=== PATIENT | female | born 1985 | race African-American/Black ===

== ENCOUNTER 2016-12-27 09:36 | Inpatient (IN) | payer OTHER ==
[~2016-12-27] VITALS: Ht 162.6 cm; Wt 156.5 kg
[2016-12-27 10:01] LABS: CLARITY URINE CLOUDY (CLEAR); COLOR URINE DARK YELLOW (YELLOW); GLUCOSE URINE NEGATIVE (NEGATIVE); KETONES URINE TRACE (NEGATIVE); LEUKOCYTE ESTERASE URINE TRACE (NEGATIVE); NITRITE URINE NEGATIVE (NEGATIVE); OCCULT BLOOD URINE NEGATIVE (NEGATIVE); PH URINE 5.5 (4.5-8.0); PROTEIN URINE 3+ (NEGATIVE); SPECIFIC GRAVITY URINE 1.033 (1.005-1.030)
[2016-12-27] MEDS ORDERED: LABE200T PO (10:24)
[2016-12-27] MEDS ORDERED: PREN-88 PO (10:24)
[2016-12-27] MEDS ORDERED: FOLI-43 PO (10:24)
[2016-12-27] MEDS ORDERED: NIFE30TA94 PO (10:24)
[2016-12-27] MEDS ORDERED: DEXT 5%/LR + PITOCIN 20UNITS/L 1,000 ML IV SCH (10:39)
[2016-12-27] MEDS ORDERED: LIDOCAINE HCL 1% 20ML VIAL (Pyxis) INJ INFIL SCH (10:45)
[2016-12-27] MEDS ORDERED: METHYLERGONOVINE MALEATE 0.2 MG/ML IM PRN (10:45)
[2016-12-27] MEDS ORDERED: CARBOPROST TROMETHAMINE 250 MCG/ML AMPUL IM PRN (10:45)
[2016-12-27] MEDS ORDERED: BUTORPHANOL TARTRATE 2 MG/ML VIAL IV PRN (10:45)
[2016-12-27] MEDS: LACTATED RINGERS 1,000 ML IV SCH ×2 (11:26→21:27)
[2016-12-27] MEDS ORDERED: HYDRALAZINE 20MG/ML VIAL IV SCH ×2 (11:30→12:15)
[2016-12-27 11:32] LABS: BASOPHILS % 0.5 % (0.0-2.0); EOSINOPHILS % 3.2 % (0.0-5.0); HEMATOCRIT. 35.6 % (36.0-48.0); HEMOGLOBIN. 11.8 g/dL (12.0-16.0); LYMPHOCYTES % 26.6 % (20.0-50.0); MEAN CORPUSCULAR HEMOGLOBIN 27.1 pg (28.0-32.0); MEAN CORPUSCULAR VOLUME 81.6 fL (81.0-99.0); MONOCYTES % 10.4 % (2.0-8.0); NEUTROPHILS % 59.3 % (40.0-76.0); PLATELET 193 x1000/uL (130-400); RED BLOOD CELL COUNT 4.36 mill/uL (4.2-5.4); RED CELL DISTRIBUTION WIDTH 14.6 % (11.6-14.6)
[2016-12-27 11:36] LABS: D-DIMER 2.11 mg/L FEU (<0.50); INR 0.9; PARTIAL THROMBOPLASTIN TIME 28.7 sec (24.0-34.0); PROTHROMBIN TIME 9.2 sec
[2016-12-27 11:39] LABS: CARBON DIOXIDE 27 mEq/L (21-32); CHLORIDE 106 mEq/L (98-107)
[2016-12-27] MEDS ORDERED: NIFEDIPINE 10MG CAPSULE PO SCH ×2 (11:45→17:00)
[2016-12-27] MEDS ORDERED: ACETAMINOPHEN 325MG TABLET PO PRN (12:00)
[2016-12-27] MEDS: MAGNESIUM 20 G PREMIX (L & D) 500 ML IV SCH ×2 (12:13→17:36)
[2016-12-27] MEDS ORDERED: MAGNESIUM 4 G PREMIX 100 ML IV ONE (12:15)
[2016-12-27 12:21] LABS: *AMPHETAMINES SCREEN URINE NEGATIVE (NEGATIVE); *BARBITURATES SCREEN URINE NEGATIVE (NEGATIVE); *BENZODIAZEPINES SCREEN URINE NEGATIVE (NEGATIVE); *COCAINE SCREEN URINE NEGATIVE (NEGATIVE); CANNABINOID URINE SCREEN NEGATIVE (NEGATIVE); METHADONE URINE SCREEN NEGATIVE (NEGATIVE); OPIATES URINE SCREEN NEGATIVE (NEGATIVE); PHENCYCLIDINE URINE SCREEN NEGATIVE (NEGATIVE)
[2016-12-27 12:44] LABS: HEPATITIS B SURFACE ANTIGEN NEGATIVE; RUBELLA IGG 68.5 IU/mL (4.99-10)
[2016-12-27] MEDS: MISOPROSTOL 200MCG TABLET PO PRN ×3 (12:44→20:57)
[2016-12-27] MEDS ORDERED: LABETALOL HCL 20MG/4ML CARPUJECT IV NR (13:00)
[2016-12-27] MEDS ORDERED: PENICILLIN G POTASSIUM 5 MMU in DEXT 5% WATER 100 ML IV NR (13:00)
[2016-12-27] MEDS ORDERED: LABETALOL HCL 20MG/4ML CARPUJECT IV ONE (13:05)
[2016-12-27] MEDS: NIFEDIPINE XL 30MG TAB PO SCH (13:43)
[2016-12-27] MEDS: NIFEDIPINE 10MG CAPSULE PO NR ×8 (14:22→20:37)
[2016-12-27] MEDS ORDERED: NIFEDIPINE 10MG CAPSULE PO NR ×2 (15:30→20:15)
[2016-12-27] MEDS: LABETALOL HCL 200MG TABLET PO SCH ×2 (15:43→23:59)
[2016-12-27] MEDS ORDERED: MAGNESIUM 20 G PREMIX (L & D) 500 ML IV SCH (18:24)
[2016-12-27] MEDS: PENICILLIN G POTASSIUM 2.5 MMU in DEXTROSE 5% WATER 50 ML IV SCH (19:01)
[2016-12-28] MEDS: MISOPROSTOL 200MCG TABLET PO PRN ×3 (00:50→08:51)
[2016-12-28] MEDS: PENICILLIN G POTASSIUM 2.5 MMU in DEXTROSE 5% WATER 50 ML IV SCH ×2 (01:19→07:21)
[2016-12-28] MEDS: NIFEDIPINE XL 30MG TAB PO SCH ×2 (01:45→21:09)
[2016-12-28] MEDS: LABETALOL HCL 200MG TABLET PO SCH ×3 (07:31→16:42)
[2016-12-28] MEDS ORDERED: DIPHENHYDRAMINE 25MG CAPSULE PO PRN (08:30)
[2016-12-28] MEDS ORDERED: ACETAMINOPHEN WITH CODEINE 300/30MG TABLET PO PRN ×2 (08:30)
[2016-12-28] MEDS ORDERED: GLYCERIN/WITCH HAZEL LEAF MEDICATED PAD TOP PRN (08:30)
[2016-12-28] MEDS ORDERED: IBUPROFEN 400MG TABLET PO PRN (08:30)
[2016-12-28] MEDS ORDERED: RHO(D) IMMUNE GLOBULIN 300 MCG/SYR IM PRN (08:30)
[2016-12-28] MEDS ORDERED: PRENATAL VIT/FE FUMARATE/FA TABLET PO SCH (09:00)
[2016-12-28] MEDS ORDERED: LABETALOL HCL 200MG TABLET PO SCH (09:00)
[2016-12-28] MEDS ORDERED: NIFEDIPINE XL 30MG TAB PO SCH (09:00)
[2016-12-28 09:23] LABS: CARBON DIOXIDE 22 mEq/L (21-32); CHLORIDE 100 mEq/L (98-107)
[2016-12-28] MEDS: DEXT 5%/LR + PITOCIN 20UNITS/L 1,000 ML IV SCH (09:31)
[2016-12-28 11:00] VITALS: BP 139/86
[2016-12-28 11:40] VITALS: BP 139/89
[2016-12-28] MEDS: MAGNESIUM 20 G PREMIX (L & D) 500 ML IV SCH ×2 (12:06→23:00)
[2016-12-28] MEDS: MAGNESIUM/ALUMINUM HYDROXIDE/SIMETHICONE 30ML UDC PO SCH ×3 (13:05→21:08)
[2016-12-28 13:26] LABS: BASOPHILS % 0.2 % (0.0-2.0); EOSINOPHILS % 0.6 % (0.0-5.0); HEMATOCRIT. 35.2 % (36.0-48.0); HEMOGLOBIN. 11.6 g/dL (12.0-16.0); LYMPHOCYTES % 16.5 % (20.0-50.0); MEAN CORPUSCULAR HEMOGLOBIN 26.9 pg (28.0-32.0); MEAN CORPUSCULAR VOLUME 81.7 fL (81.0-99.0); MEAN PLATELET VOLUME 7.4 fl (7.4-10.4); MONOCYTES % 6.4 % (2.0-8.0); NEUTROPHILS % 76.3 % (40.0-76.0); PLATELET 205 x1000/uL (130-400); RED CELL DISTRIBUTION WIDTH 14.9 % (11.6-14.6)
[2016-12-28 16:00] VITALS: BP 132/80
[2016-12-28 20:00] VITALS: BP 120/65
[2016-12-28] MEDS: DOCUSATE SODIUM 100MG CAPSULE PO SCH (21:10)
[2016-12-29] VITALS: BP 141/82
[2016-12-29] MEDS: DEXT 5%/LR + PITOCIN 20UNITS/L 1,000 ML IV SCH (03:56)
[2016-12-29 04:00] VITALS: BP 149/95
[2016-12-29] MEDS: MAGNESIUM 20 G PREMIX (L & D) 500 ML IV SCH (06:48)
[2016-12-29] MEDS: MAGNESIUM/ALUMINUM HYDROXIDE/SIMETHICONE 30ML UDC PO SCH ×4 (06:49→21:00)
[2016-12-29 08:00] VITALS: BP 144/92
[2016-12-29] MEDS: NIFEDIPINE XL 30MG TAB PO SCH ×2 (11:52→22:40)
[2016-12-29] MEDS: FERROUS SULFATE 325MG TABLET PO SCH ×2 (11:52→18:06)
[2016-12-29] MEDS: LABETALOL HCL 200MG TABLET PO SCH ×3 (11:52→18:09)
[2016-12-29 12:00] VITALS: BP 152/98
[2016-12-29 15:48] VITALS: BP 157/103
[2016-12-29 20:00] VITALS: BP 151/98
[2016-12-29] MEDS: DOCUSATE SODIUM 100MG CAPSULE PO SCH (21:00)
[2016-12-30] VITALS (7 sets, daily range): BP systolic 109–166; BP diastolic 77–108
[2016-12-30] MEDS: NIFEDIPINE XL 30MG TAB PO SCH ×4 (00:53→17:43)
[2016-12-30] MEDS: HYDRALAZINE 20MG/ML VIAL IV PRN ×3 (02:57→04:38)
[2016-12-30] MEDS: FERROUS SULFATE 325MG TABLET PO SCH ×3 (06:57→17:43)
[2016-12-30] MEDS: MAGNESIUM/ALUMINUM HYDROXIDE/SIMETHICONE 30ML UDC PO SCH ×3 (06:57→17:43)
[2016-12-30] MEDS: LABETALOL HCL 200MG TABLET PO SCH ×3 (12:14→17:43)
[2016-12-30] MEDS ORDERED: AMLODIPINE 10MG TABLET PO SCH (13:45)
== END 2016-12-30 18:50 | disposition home or self-care (01) | DRG 774 ==
LOC: OBSVTOIN 09:36 → L&D 09:36 → 8WST 12-28 10:50
PROVIDERS: ADMIT Specialist; ATTEND Specialist
PROC: 10E0XZZ Delivery of Products of Conception, External Approach (ICD-10-PCS; principal; 2016-12-28)
DX: O36.4XX0 Maternal care for intrauterine death, not applicable or unspecified (principal); O10.92 Unspecified pre-existing hypertension complicating childbirth; O41.02X0 Oligohydramnios, second trimester, not applicable or unspecified; O99.324 Drug use complicating childbirth; Z68.43 Body mass index [BMI] 50.0-59.9, adult; E66.01 Morbid (severe) obesity due to excess calories; D64.9 Anemia, unspecified; F12.10 Cannabis abuse, uncomplicated; F17.210 Nicotine dependence, cigarettes, uncomplicated; O32.1XX0 Maternal care for breech presentation, not applicable or unspecified; O99.02 Anemia complicating childbirth; O99.214 Obesity complicating childbirth; O99.334 Smoking (tobacco) complicating childbirth; O13.2 Gestational [pregnancy-induced] hypertension without significant proteinuria, second trimester; Z37.1 Single stillbirth; Z3A.23 23 weeks gestation of pregnancy
CPT/HCPCS: 36415; 76815; 76830; 80053; 80305; 80359; 81001; 83735; 84550; 85025; 85379; 85384; 85610; 85730; 86592; 86703; 86762; 86850; 86900; 86920; 87340; 88307; C1893; G0378; J0360; J0595; J2540; J2590; J3475; J3490; J7060; J7120; A4315